=== PATIENT | male | born 1995 | race Two or more races ===

== ENCOUNTER 2022-06-27 13:58 | Emergency (ER) | payer OTHER ==
[~2022-06-27] VITALS: Ht 177.8 cm; Wt 61.2 kg
[2022-06-27] MEDS ORDERED: OSEL75CA PO (16:31)
== END 2022-06-27 16:40 | disposition home or self-care (01) ==
LOC: ER 13:58
DX: J10.1 Influenza due to other identified influenza virus with other respiratory manifestations (principal); Z20.822 Contact with and (suspected) exposure to COVID-19